=== PATIENT | female | born 1965 | race Caucasian/White ===

== ENCOUNTER 2019-08-06 10:51 | Emergency (ER) | payer MEDICAID, OTHER ==
[~2019-08-06] VITALS: Ht 154.9 cm; Wt 68.0 kg
[2019-08-06 10:56] VITALS: BP 147/75
--- NOTE | 2019-08-06 11:12 | NUR ---
relieving RN for break, pt is waiting to be evaluated by provider
[2019-08-06] MEDS ORDERED: acetaminophen 325mg tablet PO ONE (11:30)
[2019-08-06] MEDS ORDERED: DICL100G15 TOP (11:59)
== END 2019-08-06 12:11 | disposition home or self-care (01) ==
LOC: ER 10:52
DX: M25.462 Effusion, left knee (principal); M25.562 Pain in left knee; M79.89 Other specified soft tissue disorders; G89.29 Other chronic pain; Z98.890 Other specified postprocedural states; Z88.8 Allergy status to other drugs, medicaments and biological substances; Z79.899 Other long term (current) drug therapy
CPT/HCPCS: 73564; 99283